=== PATIENT | female | born 1980 | race Caucasian/White ===

== ENCOUNTER 2021-08-06 18:36 | Emergency (ER) | payer BC ==
[~2021-08-06 18:36] MED LIST: KEFLEX500 MG PO
[2021-08-06] MEDS ORDERED: BUSPIRONE15 MG PO (19:19)
[2021-08-06] MEDS ORDERED: LOSARTAN-HCTZ1 EACH PO (19:19)
[2021-08-06] MEDS ORDERED: PROZAC20 MG PO (19:19)
[2021-08-06] MEDS ORDERED: NAPROXEN250 MG PO (20:08)
== END 2021-08-06 20:22 | disposition home or self-care (01) ==
LOC: ED 18:36
DX: S56.912A Strain of unspecified muscles, fascia and tendons at forearm level, left arm, initial encounter (principal); X50.9XXA Other and unspecified overexertion or strenuous movements or postures, initial encounter; Y93.89 Activity, other specified; Y92.89 Other specified places as the place of occurrence of the external cause; Y99.8 Other external cause status

== ENCOUNTER → 2022-01-13 | Outpatient (CLI) | payer BC, OTHER ==
[~2022-01-13] MED LIST changes: +BUSPIRONE15 MG PO; +LOSARTAN-HCTZ1 EACH PO; +NAPROXEN250 MG PO; +PROZAC20 MG PO
[2022-01-13 08:36] LABS: BASO % 0.4 % (0.0-1.0); EOS # 0.2 10*3/uL (0.0-0.4); EOS % 3.3 % (1.0-4.0); LYMPH # 1.5 10*3/uL (1.3-4.4); LYMPH % 26.8 % (27.0-41.0); MEAN CELL VOLUME 85.2 fl (81.0-99.0); MEAN CORPUSCULAR HGB 29.4 pg (27.0-31.0); MEAN CORPUSCULAR HGB CONC 34.5 g/dl (33.0-37.0); MEAN PLATELET VOLUME 9.4 fl (9.6-12.3); MONO # 0.4 10*3/uL (0.1-1.0); MONO % 7.1 % (3.0-9.0); NEUT # 3.4 10*3/uL (2.3-7.9); NEUT % 62.2 % (47.0-73.0); PLATELET COUNT AUTOMATED 204 10*3/uL (130-400); RED BLOOD COUNT 4.46 10*6/uL (4.10-5.10); RED CELL DISTRI WIDTH 12.5 % (0-14.5); WHITE BLOOD COUNT 5.5 10*3/uL (4.8-10.8)
[2022-01-13 08:57] LABS: ALKALINE PHOSPHATASE 62 U/L (45-117); BUN 11 mg/dl (7-24); CHLORIDE 107 mmol/L (98-107); CHOLESTEROL 140 mg/dL (<200); CREATININE 0.74 mg/dL (0.55-1.02); LDL CHOLESTEROL 79 mg/dL (9-159); POTASSIUM 3.8 mmol/L (3.5-5.1); SGOT/AST 13 IU/L (3-35); SGPT/ALT 19 U/L (12-78); SODIUM 139 mmol/L (136-145); THYROXINE (T4) TOTAL 9.1 ug/dl (4.8-13.9); TOTAL PROTEIN 7.1 gm/dL (6.4-8.2); TRIGLYCERIDES 68 mg/dl (<150)
[2022-01-13 09:02] LABS: T3 UPTAKE 34 % (31-39); THYROID STIM HORMONE (HS) 0.621 uIU/ml (0.358-4.75)
== END | disposition home or self-care (01) ==
LOC: LAB 08:15
PROVIDERS: ATTEND Nurse Practitioner Family
DX: F32.9 Major depressive disorder, single episode, unspecified (principal); E04.2 Nontoxic multinodular goiter; F41.9 Anxiety disorder, unspecified; I10 Essential (primary) hypertension; Z65.8 Other specified problems related to psychosocial circumstances